=== PATIENT | male | born 1970 | race Caucasian/White ===

== ENCOUNTER 2022-04-17 19:30 | Emergency (ER) | payer OTHER ==
[2022-04-17 19:50] VITALS: BP 172/97
--- NOTE | 2022-04-17 23:02 | ED Physician Documentation ---
PD HPI HEAD INJURY - Stated complaint Stated Complaint: HEAD INJ - Chief complaint Chief Complaint: Trauma Hd/Nk - History obtained from History obtained from: Patient - Additional information Additional information: Patient is a 51-year-old male with no significant past medical history presenting for evaluation of a head injury after ground-level fall. This evening he had returned home to a water leak and was turning off the water when he slipped on the wet kristian and fell backwards. He hit his head on the hardwood floor. He did not lose consciousness. He recalls the events very clearly. He reports feeling stunned for a few seconds. He was able to get up and denies any significant pain.He does not take a blood thinner. He denies vision impairment, headache, chest pain or difficulty breathing. He denies focal weakness, numbness or tingling. Review of Systems Constitutional: denies: Fever Nose: denies: Congestion Throat: denies: Sore throat Cardiac: denies: Chest pain / pressure Respiratory: denies: Dyspnea, Cough GI: denies: Abdominal Pain, Vomiting : denies: Dysuria Skin: denies: Rash, Abrasion (s) Musculoskeletal: denies: Neck pain, Back pain Neurologic: reports: Head injury. denies: Generalized weakness, Syncope PD PAST MEDICAL HISTORY - Allergies Allergies/Adverse Reactions: Allergies Allergy/AdvReac Type Severity Reaction Status Date / Time erythromycin base Allergy Hives Verified 04/17/22 19:50 PD ED PE NORMAL - General General: Alert and oriented X 3, No acute distress, Well developed/nourished - HEENT HEENT: Atraumatic, PERRL, EOMI, Ears normal, Moist mucous membranes, Pharynx benign, Other (No johnson signs, raccoon eyes or evidence of CSF leak) - Neck Neck: Supple, no meningeal sign, No bony TTP, C-Spine cleared by NEXUS criteria - Cardiac Cardiac: RRR, No murmur, Strong equal pulses - Respiratory Respiratory: No respiratory distress, Clear bilaterally - Abdomen Abdomen: Normal bowel sounds, Soft, Non tender, Non distended - Derm Derm: Warm and dry - Extremities Extremities: No deformity, Normal ROM s pain, No edema - Neuro Neuro: Alert and oriented X 3, web portal developer 2-12 intact, No motor deficit, No sensory deficit, Normal speech - Psych Psych: Normal mood Results - Vitals Vitals: Vital Signs - 24 hr 07/02/22 19:44 Temperature 36.8 C Heart Rate 100 Respiratory 16 Rate Blood Pressure 172/97 H O2 Saturation 99 Oxygen O2 Source Room air PD MEDICAL DECISION MAKING - ED course Complexity details: d/w patient ED course: Patient presenting for evaluation of a head injury. Per MIPS criteria I do not think he requires a head CT at this time. His neurologic exam is normal. There were no outward signs of trauma. It was a ground-level fall and he is not on any anticoagulation. Patient is currently well-appearing without complaints during my exam. He is comfortable with the plan on not obtaining imaging and is advised on strict return precautions. He is ambulatory at discharge. Departure - Departure Disposition: 01 Home, Self Care Clinical Impression: Head injury Qualifiers: Encounter type: initial encounter Qualified Code(s): S09.90XA - Unspecified injury of head, initial encounter Fall due to wet surface Qualifiers: Encounter type: initial encounter Qualified Code(s): W01.0XXA - Fall on same level from slipping, tripping and stumbling without subsequent striking against object, initial encounter Condition: Stable Instructions: ED Head Injury Closed Comments: You were evaluated after a head injury. Your neurologic exam appears normal and I do not see any outward signs of trauma on your exam.At this time I believe it is reasonable to hold off on imaging as you were considered low risk for an intracranial/brain injury. Please use Motrin or Tylenol as needed for pain. If you have any worsening symptoms such as worsening headache, changes to your vision, weakness, confusion or any concerns please return to the emergency department. Discharge Date/Time: 04/17/22 23:16
== END 2022-04-17 23:16 | disposition home or self-care (01) ==
LOC: ED 19:30
DX: S09.90XA Unspecified injury of head, initial encounter (principal); W01.0XXA Fall on same level from slipping, tripping and stumbling without subsequent striking against object, initial encounter; Y93.89 Activity, other specified; Y92.009 Unspecified place in unspecified non-institutional (private) residence as the place of occurrence of the external cause
CPT/HCPCS: 99281; 99282